=== PATIENT | male | born 1995 | race Caucasian/White ===

== ENCOUNTER 2016-07-24 02:09 | Emergency (ER) | payer OTHER ==
[~2016-07-24] VITALS: Ht 180.3 cm; Wt 70.5 kg
[2016-07-24 02:15] VITALS: TEMP 36.4; Ht 180.3 cm; Wt 70.5 kg
[2016-07-24 02:21] VITALS: O2SAT 97
--- NOTE | 2016-07-24 02:30 | EMERGENCY ROOM VISIT NOTE ---
History Report prepared by Ruy: Venice Valero Under the Supervision of: Dr. Fifi Cazares D.O. First contact with patient: 02:13 Chief Complaint: ALCOHOL OVERDOSE Stated Complaint: ALCOHOL OVERDOSE History of Present Illness The patient is a 21 year old male who presents to the Emergency Room with complaints of an alcohol overdose that occurred prior to arrival. Per nursing staff the patient was found on the bus vomiting. The patient states that he drank both beer and liquor this evening. He denies any drug use. The patient denies any active medical problems. He denies any fall or injury. The patient states that he drank at a bar this evening. The history is limited secondary to alcohol intoxication. Source of History: patient History Limited By: intoxication (alcohol) Onset: prior to arrival Position: other (global) Quality: other (alcohol overdose) Associated Symptoms: + vomiting Review of Systems The history is limited secondary to alcohol intoxication. Past Medical & Surgical Unobtainable secondary to alcohol intoxication. Family History Unobtainable secondary to alcohol intoxication. Social History Smoking Status: Never Smoker Alcohol Use: heavy Occupation Status: [employer] student Current/Historical Medications Unable to Obtain Active Prescriptions or Reported Meds Allergies Coded Allergies: No Known Allergies (Unverified , 07/24/16) Physical Exam Vital Signs Date Time Temp Pulse Resp B/P Pulse Ox O2 Delivery O2 Flow Rate FiO2 07/24/16 06:08 87 07/24/16 05:59 86 18 91/34 94 Room Air 07/24/16 04:59 74 14 93/37 98 Room Air 07/24/16 03:59 105 18 98/53 95 Room Air 07/24/16 03:00 79 18 132/54 96 Room Air 07/24/16 02:25 95 07/24/16 02:21 97 Room Air 07/24/16 02:15 36.4 104 16 148/87 98 Room Air Physical Exam General: Smells of alcohol and vomit. HEENT: Head - normocephalic and atraumatic Pupils are 3 mm and sluggishly reactive to light. Nose - moist nasal mucosa without discharge. Mouth - moist buccal mucosa. Oropharynx is nonerythematous and there is no tonsillar exudate or edema noted. Neck: Supple; no JVD, nuchal rigidity, cervical lymphadenopathy. Heart: Regular rate and rhythm. There is a normal S1 and S2 with no murmurs, clicks, or gallops appreciated. Lungs: Clear to auscultation bilaterally with no wheezes, rales, or rhonchi. Abdomen: Soft, completely nontender, nondistended, with good bowel sounds. There are no palpable pulsatile masses or hepatosplenomegaly. There is no guarding, rigidity, or rebound noted. Extremities: No evidence of cyanosis, clubbing, or edema. There are easily palpable peripheral pulses. Skin: Abrasion behind left knee and left flank, warm and dry with good turgor and no rashes. Medical Decision & Procedures Laboratory Results 07/24/16 02:25 Test 07/24/16 02:25 Anion Gap 7.0 mmol/L (3-11) Est Creatinine Clear Calc Drug Dose 89.6 ml/min Estimated GFR () 90.4 Estimated GFR (Non- 78.0 BUN/Creatinine Ratio 15.3 (10-20) Calcium Level 8.7 mg/dl (8.5-10.1) Ethyl Alcohol mg/dL 272.0 mg/dl (0-3) Laboratory results per my review. ED Course 0219: Past medical records reviewed. The patient was evaluated in room B11B. A complete history and physical exam was performed. The patient was placed in the prone position to avoid aspiration. He was observed on the cardiac exercise specialist and pulse oximeter. Labs were drawn as above. 0441: I reevaluated the patient and he is sound asleep and hemodynamically stable. 0548: I reevaluated the patient and he is resting and hemodynamically stable. 0630: The will awake now. I reviewed the events of the evening. The patient will be ready for discharge at approximately 9 AM. Medical Decision The patient is a 21 year old male who presents to the ED with an alcohol overdose. Differential diagnosis includes alcohol overdose, drug intoxication, hypoglycemia, head injury. Lab interpretation: Alcohol 272, glucose 116, Creatinine 1.3 This is 21-year-old male patient was found vomiting on the cat a bus. He admits to drinking a significant amount of alcohol. He denies any other drug use. Upon his arrival here in the emergency department, he was vomiting as well. He remained hemodynamically stable throughout his stay here in the ER. He was encouraged to avoid such excessive alcohol use in the future. Impression Primary Impression: Alcohol overdose Scribe Attestation The scribe's documentation has been prepared under my direction and personally reviewed by me in its entirety. I confirm that the note above accurately reflects all work, treatment, procedures, and medical decision making performed by me. Departure Information Dispostion Home / Self-Care Prescriptions Unable to Obtain Active Prescriptions or Reported Meds Forms HOME CARE DOCUMENTATION FORM, IMPORTANT VISIT INFORMATION Patient Instructions ED Overdose Alcohol, [facility]: [employer] Students and Alcohol Related Visits, [facility] Additional Instructions Avoid such excessive alcohol use in the future. Rest. Keep yourself well-hydrated. Use tylenol for headaches
[2016-07-24 02:58] LABS: BUN/CREATININE RATIO 15.3 (10-20); CALCIUM 8.7 mg/dl (8.5-10.1); CREATININE 1.3 mg/dl (0.60-1.40); POTASSIUM 4.6 mmol/L (3.5-5.1)
[2016-07-24 09:08] VITALS: BP 126/83; PULSE 104; O2SAT 99
== END 2016-07-24 09:15 | disposition home or self-care (01) ==
LOC: EDBD 02:09 → C.EDB 02:11
DX: T51.91XA Toxic effect of unspecified alcohol, accidental (unintentional), initial encounter (principal)